=== PATIENT | male | born 1955 | race American Indian/Alaskan Native ===

== ENCOUNTER 2017-10-03 10:43 | Emergency (ER) | payer OTHER ==
[2017-10-03] MEDS ORDERED: ASPIRIN PO ONE ×2 (11:10→13:20)
[2017-10-03 12:15] LABS: Basophils % (Auto) 1.1 % (0.0-1.8); Eosinophils # (Auto) 0.2 K/mm3 (0.0-0.4); Eosinophils % (Auto) 4.1 % (0.0-4.3); Hemoglobin 14.3 gm/dl (11.8-15.2); Lymphocytes # (Auto) 1.3 K/mm3 (1.2-5.4); Lymphocytes % (Auto) 33.4 % (13.4-35.0); Mean Corpuscular HGB Conc 33 % (32-34); Mean Corpuscular Hemoglobin 29 pg (28-32); Mean Corpuscular Volume 86 fl (84-94); Monocytes # (Auto) 0.3 K/mm3 (0.0-0.8); Platelet Count 225 K/mm3 (140-440); Red Blood Count 4.97 M/mm3 (3.65-5.03); Red Cell Distribution Width 12.7 % (13.2-15.2)
[2017-10-03 12:33] LABS: BUN/Creatinine Ratio 16; Blood Urea Nitrogen 11 mg/dL (9-20); Calcium 9.2 mg/dL (8.4-10.2); Hemolysis Index 12
--- NOTE | 2017-10-03 13:10 | Emergency Department Report ---
ED Chest Pain HPI - General Chief Complaint: Chest Pain Stated Complaint: CHEST PAIN Time Seen by Provider: 10/03/17 13:03 Source: patient Mode of arrival: Ambulatory Limitations: No Limitations - History of Present Illness Initial Comments: 62-year-old male states that he was speaking on a telephone and then started walking. While he was working he developed a chest pain and the substernal area which she described as like "indigestion". He denied nausea vomiting sweating or shortness of breath. He states that about 2 years ago had a chemical stress test which was negative. He states his mother had a heart attack. He has a history of hypertension and used to be on Crestor but this has been discontinued. 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 He has very minimal discomfort in his chest at present. He also has a history of palpitations and has been experiencing this today as well. MD Complaint: chest pain -: Gradual Onset: during exertion Pain Location: substernal Pain Radiation: none Severity: moderate Quality: other Consistency: now resolved (largely resolved) Improves With: nothing Worsens With: other (states that he wasn't exerting himself while he was walking but the onset occurred upon walking ) re: denies: nausea, vomting, diaphoresis, dyspnea, sense of impending doom Other Symptoms: denies: cough, fever, syncope, rash, acid taste in mouth, leg swelling Treatments Prior to Arrival: none Aspirin use within the Past 7 Days: (0) No - Related Data On Oral Contraceptives: No Home Medications Medication Instructions Recorded Confirmed Last Taken Amlodipine Besylate [Norvasc] 5 mg PO QDAY 10/03/17 10/03/17 Unknown Aspirin [Adult Low Dose Aspirin EC] 81 mg PO DAILY 10/03/17 10/03/17 Unknown Losartan/Hydrochlorothiazide 1 each PO QDAY 10/03/17 10/03/17 Unknown [Losartan-Hctz 100-25 mg Tab] Allergies Allergy/AdvReac Type Severity Reaction Status Date / Time No Known Allergies Allergy Unverified 10/03/17 11:05 Heart Score - HEART Score History: Slightly suspicious EKG: Normal Age: 45-65 Risk factors: > 3 risk factors or hx of atherosclerotic disease Troponin: < normal limit HEART Score: 3 - Critical Actions Critical Actions: 0-3 pts:0.9-1.7%risk of adverse cardiac event.Candidate for discharge ED Review of Systems ROS: Stated complaint: CHEST PAIN Other details as noted in HPI Constitutional: denies: chills, fever Eyes: denies: eye pain, eye discharge, vision change ENT: denies: ear pain, throat pain Respiratory: denies: cough, shortness of breath, wheezing Cardiovascular: chest pain. denies: palpitations Endocrine: no symptoms reported Gastrointestinal: denies: abdominal pain, nausea, diarrhea Genitourinary: denies: urgency, dysuria Musculoskeletal: denies: back pain, joint swelling, arthralgia Skin: denies: rash, lesions Neurological: denies: headache, weakness, paresthesias Psychiatric: denies: anxiety, depression Hematological/Lymphatic: denies: easy bleeding, easy bruising ED Past Medical Hx - Past Medical History Previous Medical History?: Yes Hx Hypertension: Yes Additional medical history: Irregular heart beat - Surgical History Past Surgical History?: No - Social History Smoking Status: Never Smoker Substance Use Type: Alcohol - Medications Home Medications: Home Medications Medication Instructions Recorded Confirmed Last Taken Type Amlodipine Besylate [Norvasc] 5 mg PO QDAY 10/03/17 10/03/17 Unknown History Aspirin [Adult Low Dose Aspirin EC] 81 mg PO DAILY 10/03/17 10/03/17 Unknown History Losartan/Hydrochlorothiazide 1 each PO QDAY 10/03/17 10/03/17 Unknown History [Losartan-Hctz 100-25 mg Tab] ED Physical Exam - General Limitations: No Limitations General appearance: alert, in no apparent distress - Head Head exam: Present: atraumatic, normocephalic - Eye Eye exam: Present: normal appearance, PERRL, EOMI. Absent: scleral icterus - ENT ENT exam: Present: mucous membranes moist - Neck Neck exam: Present: normal inspection - Respiratory Respiratory exam: Present: normal lung sounds bilaterally. Absent: respiratory distress - Cardiovascular Cardiovascular Exam: Present: regular rate, normal rhythm. Absent: systolic murmur, diastolic murmur, rubs, gallop - GI/Abdominal GI/Abdominal exam: Present: soft, normal bowel sounds. Absent: distended, tenderness, guarding, rebound, rigid - Rectal Rectal exam: Present: deferred - Extremities Exam Extremities exam: Present: normal inspection - Back Exam Back exam: Present: normal inspection - Neurological Exam Neurological exam: Present: alert, oriented X3, CN II-XII intact. Absent: motor sensory deficit - Psychiatric Psychiatric exam: Present: normal affect, normal mood - Skin Skin exam: Present: warm, dry, intact, normal color. Absent: rash ED Course Vital Signs 10/03/17 10/03/17 10/03/17 11:05 12:25 12:30 Temperature 97.8 F Pulse Rate 50 L 57 L 44 L Respiratory 18 10 L 17 Rate Blood Pressure 150/78 157/83 O2 Sat by Pulse 99 100 100 Oximetry 10/03/17 10/03/17 10/03/17 13:00 13:30 14:00 Temperature Pulse Rate 42 L 47 L 46 L Respiratory 13 10 L 12 Rate Blood Pressure 158/78 197/76 169/80 O2 Sat by Pulse 100 Oximetry 10/03/17 10/03/17 14:30 14:51 Temperature Pulse Rate 42 L 62 Respiratory 15 Rate Blood Pressure 153/75 156/74 O2 Sat by Pulse 100 Oximetry - Reevaluation(s) Reevaluation #1: The patient was admitted by Dr. Reis. However, he eloped and I do not believe he even signed AMA. 10/03/17 15:43 ANANDA score - Ananda Score Age > 65: (0) No Aspirin use within the Past 7 Days: (1) Yes 3 or more CAD Risk Factors: (1) Yes 2 or more Angina events in past 24 hrs: (0) No Known CAD with more than 50% Stenosis: (0) No Elevated Cardiac Markers: (0) No ST Deviation Greater than 0.5mm: (0) No ANANDA Score: 2 ED Medical Decision Making - Lab Data Result diagrams: 10/03/17 12:05 10/03/17 12:05 Laboratory Results - last 24 hr 10/03/17 10/03/17 12:05 12:05 WBC 4.0 L RBC 4.97 Hgb 14.3 Hct 43.0 MCV 86 MCH 29 MCHC 33 RDW 12.7 L Plt Count 225 Lymph % (Auto) 33.4 [place] % (Auto) 7.0 Eos % (Auto) 4.1 Baso % (Auto) 1.1 Lymph # 1.3 [place] # 0.3 Eos # 0.2 Baso # 0.0 Seg Neutrophils % 54.4 Seg Neutrophils # 2.2 Carbon Dioxide 30 BUN 11 Creatinine 0.7 L Estimated GFR > 60 BUN/Creatinine Ratio 16 Glucose 108 H Calcium 9.2 Troponin T < 0.010 NA 137, K 4.2, CL 95.4 AG 16 - EKG Data -: EKG Interpreted by Me EKG shows normal: sinus rhythm Rate: bradycardia - EKG Data When compared to previous EKG there are: other Interpretation: other - Radiology Data Radiology results: report reviewed (chest x-ray no acute process) Critical care attestation.: If time is entered above; I have spent that time in minutes in the direct care of this critically ill patient, excluding procedure time. ED Disposition Clinical Impression: Uncontrolled hypertension, Sinus bradycardia, PVCs (premature ventricular contractions) Chest pain Qualifiers: Chest pain type: unspecified Qualified Code(s): R07.9 - Chest pain, unspecified Disposition: 09 OP ADMIT IP TO THIS HOSP Is pt being admited?: Yes Does the pt Need Aspirin: Yes Condition: Stable Instructions: Chest Pain (ED), Hypertension (ED) Referrals: PRIMARY CARE, [Primary Care Provider] - 3-5 Days Time of Disposition: 13:32
[2017-10-03] MEDS ORDERED: NITRO-BID 2% TP ONE (13:21)
--- NOTE | 2017-10-03 13:31 | History and Physical Report ---
History of Present Illness Chief complaint: My chest hurts History of present illness: 62 YO Male with HTN presents to ED for evaluation. Pt states that he experienced acute onset chest pain today, while he was working. Pt states that pain was 3-4/10, substernal, worsened with exertion, not relieved with rest, nonradiating, has mostly resolved at time of exam and interview. Pt states that he thinks he has acid ingestion. Pt denies fever, chillls, palpitations, NVD, shortness of breath, individual/family history of DVT/PE, prolonged travel, immobility, unilateral leg swelling, calf pain, hemoptysis, trauma, productive cough, or recent ill contacts. Pt seen and evaluated in ED and found to have symptoms consistent with ACS and Diastolic CHF. Pt admitted to telemetry. Cardiology consulted in ED. Past History Past Medical History: hypertension Past Surgical History: No surgical history, Other (reviewed) Social history: , lives with family. denies: smoking, alcohol abuse, prescription drug abuse Family history: hypertension Medications and Allergies Allergies Allergy/AdvReac Type Severity Reaction Status Date / Time No Known Allergies Allergy Unverified 10/03/17 11:05 Home Medications Medication Instructions Recorded Confirmed Last Taken Type Amlodipine Besylate [Norvasc] 5 mg PO QDAY 10/03/17 10/03/17 Unknown History Aspirin [Adult Low Dose Aspirin EC] 81 mg PO DAILY 10/03/17 10/03/17 Unknown History Losartan/Hydrochlorothiazide 1 each PO QDAY 10/03/17 10/03/17 Unknown History [Losartan-Hctz 100-25 mg Tab] Review of Systems Constitutional: no weight loss, no weight gain, no fever, no chills, no sweats, no night sweats Ears, nose, mouth and throat: no ear pain, no ear discharge, no tinnitis, no decreased hearing, no nose pain, no nasal congestion Cardiovascular: chest pain, no orthopnea, no palpitations, no rapid/irregular heart beat, no lightheadedness, no high blood pressure, no leg edema Respiratory: no cough, no cough with sputum, no excessive sputum, no hemoptysis Gastrointestinal: no abdominal pain, no nausea, no vomiting, no diarrhea, no constipation Genitourinary Male: no hematuria, no flank pain, no discharge, no urinary frequency, no urinary hesitancy Rectal: no pain, no incontinence, no bleeding Musculoskeletal: no neck stiffness, no neck pain, no shooting arm pain, no arm numbness/tingling, no low back pain, no shooting leg pain Integumentary: no rash, no pruritis, no redness, no sores, no wounds, no boils Neurological: no head injury, no paralysis, no weakness, no parathesias, no numbness, no seizures Psychiatric: no memory loss, no change in sleep habits, no sleep disturbances, no insomnia, no change in appetite Endocrine: no cold intolerance, no heat intolerance, no polyphagia, no excessive thirst, no polydipsia, no polyuria, no nocturia Hematologic/Lymphatic: no easy bruising, no easy bleeding, no lymphadenopathy, no lymphedema Allergic/Immunologic: no urticaria, no allergic rhinitis, no wheezing, no persistent infections, no anaphylaxis, no angioedema Exam - Constitutional Vitals: Temp Pulse Resp BP Pulse Ox 97.8 F 42 L 13 158/78 100 10/03/17 11:05 10/03/17 13:00 10/03/17 13:00 10/03/17 13:00 10/03/17 12:30 General appearance: Present: mild distress - EENT Eyes: Present: PERRL ENT: hearing intact, clear oral mucosa - Neck Neck: Present: supple, normal ROM - Respiratory Respiratory effort: normal Respiratory: bilateral: CTA - Cardiovascular Heart Sounds: Present: S1 & S2. Absent: rub, click - Extremities Extremities: pulses symmetrical, No edema Peripheral Pulses: within normal limits - Abdominal General gastrointestinal: Present: soft, non-tender, non-distended, normal bowel sounds Male genitourinary: Present: normal - Integumentary Integumentary: Present: clear, warm, dry - Musculoskeletal Musculoskeletal: gait normal, strength equal bilaterally - Psychiatric Psychiatric: appropriate mood/affect, intact judgment & insight - Neurologic Neurologic: CNII-XII intact, moves all extremities Results - Labs CBC & Chem 7: 10/03/17 12:05 10/03/17 12:05 Labs: Abnormal lab results 10/03/17 10/03/17 Range/Units 12:05 12:05 WBC 4.0 L (4.5-11.0) K/mm3 RDW 12.7 L (13.2-15.2) % Creatinine 0.7 L (0.8-1.5) mg/dL Glucose 108 H (75-100) mg/dL Assessment and Plan - Patient Problems (1) ACS (acute coronary syndrome) Status: Acute Plan to address problem: Serial cardiac enzymes, ekg, telemetry, echo, stress test, cardiology consulted , morphine, supplemental oxygen, nitro, aspirin, (2) Diastolic CHF Status: Acute Qualifiers: Heart failure chronicity: acute Qualified Code(s): I50.31 - Acute diastolic (congestive) heart failure Plan to address problem: Admit to telemetry, cardiology consulted in ED, Echo, monitor uop q shift, strict I/O, daily weight, afterload reduction, (3) Uncontrolled hypertension Status: Acute Plan to address problem: monitor bpq shift, continue medical management (4) GERD (gastroesophageal reflux disease) Status: Acute Qualifiers: Esophagitis presence: without esophagitis Qualified Code(s): K21.9 - Gastro -esophageal reflux disease without esophagitis Plan to address problem: PPI therapy (5) DVT prophylaxis Status: Acute Plan to address problem: SCD to BLE while in bed
[2017-10-03] MEDS ORDERED: ZOFRAN IV PRN (13:32)
[2017-10-03] MEDS ORDERED: SODIUM CHLORIDE FLUSH SYRINGE 10 ML IV PRN ×2 (13:32)
[2017-10-03] MEDS ORDERED: MORPHINE IV PRN (13:32)
[2017-10-03] MEDS ORDERED: TYLENOL PO PRN (13:32)
[2017-10-03] MEDS ORDERED: BABY ASPIRIN PO STA (13:32)
[2017-10-03 13:56] LABS: INR 0.95 (0.87-1.13)
[2017-10-03 14:03] LABS: Alanine Aminotransferase 28 units/L (7-56); Albumin 4.1 g/dL (3.9-5)
--- NOTE | 2017-10-03 14:07 | XRay Report ---
PORTABLE CHEST: Hypertension An AP portable view of the chest demonstrates a normal cardiac contour considering the limits of this technique. The lungs are clear with no evidence of infiltrate, fluid or failure. IMPRESSION: Normal portable chest.
[2017-10-03 14:16] LABS: Bilirubin,Direct < 0.2 mg/dL (0-0.2)
[2017-10-03 15:04] VITALS: BP 156/74
[2017-10-03] MEDS ORDERED: SODIUM CHLORIDE FLUSH SYRINGE 10 ML IV SCH (22:00)
== END 2017-10-03 15:30 | disposition left against medical advice (07) ==
LOC: ED 10:43 → 4A 13:32 → UNDOADMIN 13:32 → ED 15:30
DX: I49.3 Ventricular premature depolarization (principal); I10 Essential (primary) hypertension; Z79.82 Long term (current) use of aspirin
CPT/HCPCS: 36415; 71045; 80048; 80074; 83735; 83880; 84484; 85025; 85610; 85730; 93005; 93010; 99283